=== PATIENT | female | born 1955 | race Caucasian/White ===

== ENCOUNTER 2019-08-21 09:31 | Outpatient (CLI) | payer OTHER, SELFPAY ==
--- NOTE | ~2019-08-21 | XR_ITS ---
EXAMINATION: XR abdomen/kub 1V EXAM DATE: 08/21/2019 09:48 INDICATION: Bilateral kidney stones 6 month follow-up. TECHNIQUE: Frontal projection(s) of the abdomen for interpretation. Comparison is made to prior exami nation from 02/20/2019. FINDINGS: There is moderate amount of colonic stool and gas. No small bowel dilation, nonobstructiv e bowel gas pattern. Probable identification of small left nephrolithiasis up to 4 mm. Both kidneys are obscured by colonic stool. There is no organomegaly suspected. The bones are unremarkable. There is no free intraperitoneal air. The lung bases are clear. IMPRESSION: Probable left nephrolithiasis. Reviewed, dictated and finalized at location A.
== END 2019-08-21 09:32 | disposition home or self-care (01) ==
LOC: ANHIMG 09:36
PROVIDERS: PCP Family Medicine; Visit Provider Urology
DX: N20.0 Calculus of kidney (principal)
CPT/HCPCS: 74018

== ENCOUNTER 2020-08-26 10:13 | Outpatient (CLI) | payer OTHER, SELFPAY ==
--- NOTE | ~2020-08-26 | XR_ITS ---
EXAMINATION: XR abdomen/kub 1V EXAM DATE: 08/26/2020 10:39 INDICATION: Bilateral kidney stones. TECHNIQUE: Frontal projection of the upper abdomen, frontal projection lower abdomen/pelvis for inter pretation. Comparison is made to prior examination from 08/21/2019. FINDINGS: Small amount of colonic stool and gas. No small bowel dilation, nonobstructive bowel gas pattern. Several punctate densities projecting over the lower pole of the left kidney, could be stoo l or nephrolithiasis. There is no organomegaly suspected. Mild to moderate lumbar spondylosis and bilateral hip osteoarthritis. IMPRESSION: Possible small left nephrolithiasis. Reviewed, dictated and finalized at location A.
== END 2020-08-26 10:14 | disposition home or self-care (01) ==
LOC: ANHIMG 10:17
PROVIDERS: PCP Family Medicine; Visit Provider Urology
DX: N20.0 Calculus of kidney (principal)
CPT/HCPCS: 74018

== ENCOUNTER 2021-08-26 10:46 | Outpatient (CLI) | payer MEDICARE, OTHER, SELFPAY ==
--- NOTE | ~2021-08-26 | XR_ITS ---
XR abdomen/kub 1V 08/26/2021 11:19 INDICATION: Renal stones TECHNIQUE: KUB COMPARISON: Comparison to multiple prior studies sequentially, with oldest reviewed study dated 02/2019. FINDINGS: Bowel gas pattern is normal. There is no evidence of free air, mass, organomegaly, ascites or obstruction. There are small stones in the lower pole of the left kidney. The bones appear intact . Mild lumbar spondylosis. IMPRESSION: 1: Left nephrolithiasis.. Reviewed, dictated and finalized at location B. IMPRESSION: 1: Left nephrolithiasis..
== END 2021-08-26 10:47 | disposition home or self-care (01) ==
LOC: ANHIMG 10:53
PROVIDERS: PCP Family Medicine; Visit Provider Urology
DX: N20.0 Calculus of kidney (principal); M47.816 Spondylosis without myelopathy or radiculopathy, lumbar region
CPT/HCPCS: 74018

== ENCOUNTER 2021-11-05 11:15 | Outpatient (CLI) | payer MEDICARE, OTHER, SELFPAY ==
[2021-11-05 12:51] LABS: Vitamin D 25 Hydroxy 64.6 ng/mL
== END 2021-11-05 11:16 | disposition home or self-care (01) ==
LOC: ANHLAB 11:18
PROVIDERS: PCP Family Medicine; Visit Provider Nurse Practitioner Family
DX: E55.9 Vitamin D deficiency, unspecified (principal)
CPT/HCPCS: 36415; 82306

== ENCOUNTER 2022-09-09 11:17 | Outpatient (CLI) | payer MEDICARE, OTHER, SELFPAY ==
--- NOTE | ~2022-09-09 | XR_ITS ---
Supine and upright views of the abdomen Clinical history: Bilateral kidney stones COMPARISON: 08/26/2021 Findings: Bowel gas pattern is nonspecific. No evidence for obstruction or free air. Probable small l eft lower pole renal stone present. Calcified pelvic phleboliths noted. Osseous structures are intact . Impression: Probable small left lower pole renal stone. Reviewed, dictated and finalized at location . Impression: Probable small left lower pole renal stone.
== END 2022-09-09 11:18 | disposition home or self-care (01) ==
PROVIDERS: PCP Family Medicine; Visit Provider Urology
DX: N20.0 Calculus of kidney (principal)
CPT/HCPCS: 74018

== ENCOUNTER 2023-09-14 10:16 | Outpatient (CLI) | payer MEDICARE, OTHER, SELFPAY ==
--- NOTE | ~2023-09-14 | XR_ITS ---
Supine and upright views of the abdomen Clinical history: Kidney stones Findings: Bowel gas pattern is nonspecific. No evidence for obstruction or free air. No abnormal mass lesion or calcification is seen. Osseous structures are intact. Impression: No significant abnormality is seen. Reviewed, dictated and finalized at [facility]. Impression: No significant abnormality is seen.
== END 2023-09-14 10:17 | disposition home or self-care (01) ==
PROVIDERS: PCP Family Medicine; Visit Provider Urology
DX: N20.0 Calculus of kidney (principal)
CPT/HCPCS: 74018

== ENCOUNTER 2024-08-24 08:12 | Outpatient (CLI) | payer MEDICARE, OTHER, SELFPAY ==
--- NOTE | ~2024-08-24 | CT_ITS ---
EXAMINATION: CT abdomen pelvis wo con DATE: 08/24/2024 08:34 INDICATION: Bilateral kidney stones. TECHNIQUE: Computed tomography (CT) of the abdomen and pelvis was performed without intravenous contr ast. Automated exposure control and iterative reconstruction technique were employed. The dose-length product was 233.54 mGy-cm. COMPARISON: CT abdomen and pelvis 11/26/2017 FINDINGS: The visualized portions of the lung bases are clear without pneumonia or pleural effusion. The heart size is normal. There are coronary artery calcifications. No pericardial effusion. There is a small sliding hiatal hernia. The liver is normal. Calcifications in the spleen are consistent with old granulomatous disease. There are gallstones in the gallbladder which is normal in size. The panc reas and adrenal glands are normal. There is cortical thinning of right kidney. There is a 4 mm stone in right kidney. There is a 4.4 cm cyst in left kidney. There are 5 stones in left kidney measuring up to 6 mm. There is diverticulosis of the colon without evidence of diverticulitis. There are no dil ated loops of bowel. The appendix is not visualized. There are no pathologically enlarged lymph nodes . There is no free intraperitoneal fluid. There is severe lumbar spondylosis. IMPRESSION: 1. Bilateral nonobstructing kidney stones. Reviewed, dictated and finalized at location B.
--- NOTE | ~2024-08-24 | XR_ITS ---
EXAMINATION: XR abdomen/kub 1V DATE: 08/24/2024 08:31 INDICATION: Bilateral kidney stones. TECHNIQUE: A supine view of the abdomen on 2 radiographs was obtained. COMPARISON: Abdomen radiographs 09/14/2023, CT abdomen and pelvis 08/24/2024 FINDINGS: There are no dilated loops of bowel. There is a moderate volume of stool in the colon. Ther e are phleboliths in the pelvis. There is a 6 mm stone in left kidney. IMPRESSION: 1. Stone in left kidney. Reviewed, dictated and finalized at location B. IMPRESSION: 1. Stone in left kidney.
--- OUTSIDE RECORDS SUMMARY | 2024-08-24 08:26 | XMS_ITS | CONTINUITY OF CARE DOCUMENT ---
Author Name horace vu Address Unknown Organization [facility] Address [id number] [place] [address] [address] [place] [address] Phone [phone] Care Team Providers Care Clinical Associate Name Role Phone Kelvin LIM, Malena Unavailable JEANNINE HOOKER MD Unavailable TWIN LIM, RUBI F Unavailable INSURANCE PROVIDERS Payer name Policy type / Coverage type [place] red libertarian [place] [id number] Other [id number]
--- OUTSIDE RECORDS SUMMARY | 2024-08-24 08:26 | XMS_ITS | Encounter Summary ---
Author Organization [facility] Address [address] [place] [address] Phone Care Team Providers Care Line Servicer Name Role Phone Endy Moura MD Primary Care Provider [phone] Encounter Details Date Type Department Care Team (Late st Contact Info) Description 12/13/2017 Orders Only [facility] Scanning, Provider Social History Tobacco Use Types Packs/Day Years Used Date Smoking Tobacco: Never Assessed Comments Unknown Sex and Gender Information Value Date Recorded Sex Assigned at Not on file Legal Sex Female 1:53 PM TRANSPORT PILOT Gender Identity Not on file Sexual Orientation Not on file documented as of this encounter Plan of Treatment Not on file documented as of this encounter Procedures Procedure Name Priority Date/Time Associated Diagnosis Comments SCAN - RADIOLOGY/IMAGING 12/13/2017 documented in this encounter Results * SCAN - RADIOLOGY/IMAGING (12/13/2017) Anatomical Region Laterality Modality Other us Provider Scanning Final Result documented in this encounter Visit Diagnoses Not on filedocumented in this encounter Care Teams Line Servicer Relationship Specialty Start Date End Date Endy Moura MD PCP - General 10/22/16 documented as of this encounter
--- OUTSIDE RECORDS SUMMARY | 2024-08-24 08:26 | XMS_ITS | Referral Summary ---
Author Organization [facility] Address [address] [place] [address] Care Team Providers Care Hotel Director Name Role Phone Endy Moura MD Primary Care Provider Allergies Active Allergy Reactions Criticality Noted Date Comments Latex Rash Medium 03/28/2018 Prochlorperazine Rash Medium Sulfa (Sulfonamide Antibiotics) Stomach upset Low Dry Mouth Medications metFORMIN (GLUCOPHAGE) 1,000 mg tablet Take 1,000 mg by mouth 2 (two) times a day with meals. Active benazepril (LOTENSIN) 10 mg tablet Take 10 mg by mouth daily. Active lovastatin (MEVACOR) 20 mg tablet Take 20 mg by mouth nightly. Active aspirin 81 mg tablet Take 81 mg by mouth daily. Active Trulicity 0.75 mg/0.5 mL pen injector INJECT 1 SUBCUTANEOUSLY ONCE A WEEK 0 Active Active Problems Problem Noted Date Diagnosed Date Type 2 diabetes mellitus, wi thout long-term current use of insulin 12/22/2019 Hypertension 12/22/2019 Dyslipidemia 12/22/2019 Class 1 obesity in adult 12/22/2019 NAFLD (nonalcoholic fatty liver disease) 019 Immunizations Immunization Administration Dates Next Due Influenza, Quadrivalent, Bre l Culture-based MDCK, Preservative Free, Antibiotic Free, Intramuscular 03/28/2018 Influenza, Quadrivalent, Spl it, Preservative Free, Intramuscular 03/07/2019 Influenza, Split 03/30/2013 Pneumococcal Polysaccharide PPV23 03/30/2018 ZOSTER Recombinant 06/30/2018,03/30/2018 Social History Tobacco Use Types Packs/Day Years Used Date Smoking Tobacco: Former Smokeless Tobacco: Never Comments No Sex and Gender Information Value Date Recorded Sex Assigned at Not on file Legal Sex Female 1:53 PM DIAPER FOLDER Gender Identity Not on file Sexual Orientation Not on file Last Filed Vital Signs Vital Sign Reading Time Taken Comments Blood Pressure 152/78 12/22/2019 10:00 AM CDT Pulse 82 12/22/2019 10:00 AM CDT Temperature 36.5 C (97.7 F) 12/22/2019 10:00 AM CDT Respiratory Rate - - Oxygen Saturation 97% 12/22/2019 10:00 AM CDT Inhaled Oxygen Concentration - - Weight 88.5 kg (195 lb) 12/22/2019 10:00 AM CDT Height 170.2 cm (5' 7 ) 08/04/2022 11:01 AM DIAPER FOLDER Body Mass Index 30.54 12/22/2019 10:00 AM CDT Plan of Treatment Not on file Procedures Procedure Name Priority Date/Time Associated Diagnosis Comments SCREENING MAMMOGRAM BILATERAL W ARON Schedule Routine, Read Routine (OP Routine) 11/30/2023 2:56 PM CDT Screening mammogram, encounter for HEPATITIS C ANTIBODY Routine 03/28/2018 2:55 PM CDT Fatty liver Liver lesion from Last 3 Months or Most Recently Relevant to Health Maintenance Results * Screening Mammogram Bilateral W Aron (11/30/2023 2:56 PM CDT) Anatomical Region Laterality Modality Breast Bilateral Mammography 11/30/2023 3:13 PM CDT Impressions 11/30/2023 3:13 PM CDT There is no mammographic evidence of malignancy. A 1 year screening mammogram is recommended. BI-RADS: 1 - Negative. The patient has been or will be contacted. The patient will be entered into a reminder system with a target due date of 1 year for her next mammogram. Electronically signed by: Katrin Agarwal 11/30/2023 3:13 PM CDT EXAMINATION: SCREENING MAMMOGRAM BILATERAL W ARON ORDERING HEALTHCARE PROVIDER: SELF SCREENING MAMMOGRAM HISTORY: Routine screening mammography. COMPARISON: 08/04/2022, 07/04/2021, 06/21/2020, 05/16/2019 TECHNIQUE: CC and MLO views of the bilateral breasts were obtained with digital technique using breast tomosynthesis with C view. Computer aided detection was utilized. FINDINGS: DENSITY: The tissue of the breasts is extremely dense, which lowers the sensitivity of mammography. BREASTS: There are no suspicious masses, suspicious calcifications, or other suspicious findings in either breast. There has been no suspicious interval change. Self Screening Mammogram IMG MAMMO PROCEDURES Fi nal Result * Hepatitis C antibody (03/28/2018 2:55 PM CDT) Hep C Ab Nonreactive Nonreactive [facility] Comment: Interpretive Data Positive results should be confirmed by a molecular method. If positive, a second separately collected sample should be submitted for Hepatitis C Virus (HCV) RNA Detection and Quantitation by Real-Time Reverse Cigar Inspector-PCR (RT-PCR). Current interpretive data was last revised on 2016. Blood specimen (specimen) Venous blood specimen / Unknown 03/28/2018 2:55 PM CDT 03/28/2018 6:41 PM CDT Narrative [facility] - 03/29/2018 9:59 AM CDT Natacha Higgins MD LAB MICROBIOLOGY - [facility] ORDERABLES Edited Result - Final [facility] Department [place] [address] from Last 3 Months or Most Recently Relevant to Health Maintenance Insurance [facility] CHOICE PLUS MEDICARE [facility] CHOICE PLUS MEDICARE [employer] MEDICARE [employer] Care Teams Hotel Director Relationship Specialty Start Date End Date Endy Moura MD PCP - General 10/22/16
--- OUTSIDE RECORDS SUMMARY | 2024-08-24 08:26 | XMS_ITS | Clinical Summary ---
Author Organization [facility] Address [address] [place] [address] Care Team Providers Care Coding Technician Name Role Phone Endy Moura MD Primary [...] Pneumococcal Polysaccharide PPV23 03/30/2018 ZOSTER Recombinant 06/30/2018,03/30/2018 Surgical History Surgery Date Site/Laterality Comments APPENDECTOMY 06/14/1965 - 06/13/1966 TONSILLECTOMY 06/14/1962 - 06/13/1963 SECTION 06/14/1982 - 06/13/1983 ENDOMETRIAL ABLATION 06/14/2009 - 06/13/2010 LITHOTRIPSY 06/14/2009 - 06/13/2010 BREAST BIOPSY 2000? Right benign needle bx, no scar Medical History Medical History Date Comments Fibrocystic breast Breast cyst Hx of appendectomy 1965 Diabetes mellitus (HCC) Hypertension High cholesterol Kidney stones Gall stones Smoking previous Family History Medical History Relation Name Comments Diabetes Brother Heart attack Brother Heart disease Brother Prostate cancer Brother Diabetes Daughter Fatty Liver Daughter Hypertension Daughter Liver disease Daughter Diabetes Father Hypertension Father Stroke Father Clotting disorder Mother Dementia Mother Diabetes Mother Heart attack Mother Heart disease Mother Breast cancer Neg Hx Ovarian cancer Neg Hx Thyroid cancer Neg Hx Relation Name Status Comments Brother Alive Daughter Alive Father Alive Mother Social History Tobacco Use Types Packs/Day Years Used Date Smoking Tobacco: Former Smokeless Tobacco: Never Comments No Sex and Gender Information Value Date Recorded Sex Assigned at Not on file Legal Sex Female 1:53 PM OFFBEARER Gender Identity Not on file Sexual Orientation Not on file Obstetrics History Para Term AB IAB SAB Ectopic Multiple Livin g Live Births 1 06 [birth year] Date Outcome GA Total Labor Labor/2nd/3rd Weight Sex Type Anes PTL Renetta A1 A5 Name Clin Term Last Filed Vital Signs Vital Sign Reading [...] cm (5' 7 ) 08/04/2022 11:01 AM OFFBEARER Body Mass Index 30.54 12/22/2019 10:00 AM CDT Plan of Treatment Health Maintenance Due Date Last Done Comments Albumin Creatinine Ratio, Urine 1956 Colon Cancer Screening-Colonoscopy 1956 Depression Screening 1956 Fall Risk Assessment 1956 Hemoglobin A1C 1956 Osteoporosis Screening-Bone Density Scan 1956 eGFR 1956 Dilated Eye Exam 1956 Foot Exam 1956 Lipid Panel 1956 DTaP/Tdap/Td Vaccine (1 - Tdap) 1967 Hepatitis B Screening 1974 Pneumococcal vaccine 65+ (2 of 2 - PCV) 03/30/2019 03/30/2018 Well Visit 65+ 2021 Influenza Vaccine (#1) 2024 9, 03/28/2018, 03/30/2013 Breast Cancer Screening-Mammogram 11/29/2024 11/30/2023, 08/04/2022, 07/04/2021, Additional history exists Hepatitis C Screening Completed 03/28/2018 Zoster Vaccine Completed 06/30/2018, 03/30/2018 Procedures Procedure Name Priority Date/Time Associated Diagnosis [...] CDT) Hep C Ab Nonreactive Nonreactive [facility] Comment: Interpretive Data Positive results should be confirmed by a molecular method. If positive, a second separately collected sample should be submitted for Hepatitis C Virus (HCV) RNA Detection and Quantitation by Real-Time Reverse Health Tech-PCR (RT-PCR). Current interpretive data was last revised on 2016. Blood specimen (specimen) Venous blood specimen / Unknown 03/28/2018 2:55 PM CDT 03/28/2018 6:41 PM CDT Narrative [facility] - 03/29/2018 9:59 AM CDT Natacha Higgins MD LAB MICROBIOLOGY - [facility] ORDERABLES Edited Result - Final [facility] Department [place] [address] from Last 3 Months or Most Recently Relevant to Health Maintenance Insurance [facility] CHOICE [facility]US [facility] HMO/PPO Address: [address] [address] [place] [address] MEDICARE [facility] CHOICE PLUS [facility] HMO/PPO Address: [address] [address] [place] [address] MEDICARE [facility] MEDICARE [facility] Care Teams Coding Technician Relationship Specialty Start Date End Date Endy Moura MD PCP - General 10/22/16
== END 2024-08-24 08:13 | disposition home or self-care (01) ==
PROVIDERS: PCP Family Medicine; Visit Provider Urology
DX: N20.0 Calculus of kidney (principal)
CPT/HCPCS: 74018; 74176

== ENCOUNTER 2025-03-23 12:05 | Outpatient (CLI) | payer MEDICARE, OTHER, SELFPAY ==
--- NOTE | ~2025-03-23 | XR_ITS ---
EXAMINATION: XR abdomen/kub 1V, 03/23/2025 12:18 CDT HISTORY: Bi kidney stone COMPARISON: No comparisons available. Technique: 3 view. Findings: Bowel gas pattern unremarkable. No obstruction. No free air. No abnormal calcifications No acute osseous abnormality. Impression: 1. No acute abnormality. Reviewed, dictated and finalized at location P. Impression: 1. No acute abnormality.
== END 2025-03-23 12:06 | disposition home or self-care (01) ==
PROVIDERS: PCP Family Medicine; Visit Provider Urology
DX: N20.0 Calculus of kidney (principal)
CPT/HCPCS: 74018